=== PATIENT | female | born 1995 | race Caucasian/White ===

== ENCOUNTER 2016-12-05 10:07 | Emergency (ER) | payer MEDICAID, OTHER ==
[2016-12-05 10:28] VITALS: RESP 16; O2SAT 98
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
[2016-12-05 11:50] VITALS: BP 100/65; PULSE 65; TEMP 97.5
== END 2016-12-05 11:48 | disposition home or self-care (01) ==
LOC: EDSEX 10:07
DX: S90.31XA Contusion of right foot, initial encounter (principal); W23.0XXA Caught, crushed, jammed, or pinched between moving objects, initial encounter
CPT/HCPCS: L3260

== ENCOUNTER 2017-06-02 21:20 | Emergency (ER) | payer MEDICAID ==
--- NOTE | 2017-06-02 21:49 | EDPHY ---
H & P Stated Complaint: SI - Personal History LMP (Females 10-55): 22-28 Days Ago Current Tetanus/Diphtheria Vaccine: Yes Current Tetanus Diphtheria and Acellular Pertussis (TDAP): Yes - Medical/Surgical History Hx Asthma: No Hx Chronic Respiratory Disease: No Hx Diabetes: No Hx Cardiac Disease: No Hx Renal Disease: No Hx Cirrhosis: No Hx Alcoholism: No Hx HIV/AIDS: No Hx Splenectomy or Spleen Trauma: No Other PMH: healthy - Social History Smoking Status: Never smoked Time Seen by Provider: 06/02/17 21:28 HPI/ROS: CHIEF COMPLAINT: "I'm afraid to be around myself" HISTORY OF PRESENT ILLNESS: 21-year-old female in the ER via private vehicle with her friend complaining of feeling like she "just wants to " , has new self-inflicted bilateral wrist laceration which was an attempt at suicide, states that she does not feel safe around herself especially being Monday evening does not feel safe going home by herself. She has ongoing outpatient therapy. PRIMARY CARE PROVIDER:Hong REVIEW OF SYSTEMS: A ten point review of systems was performed and is negative with the exception of the items mentioned in the HPI PAST MEDICAL & SURGICAL HISTORY: No pertinent medical or surgical history SOCIAL HISTORY:single PHYSICAL EXAM (Prior to examination, patient consented to physical exam, hands were washed and my usual and customary physical exam procedures followed) 1) GENERAL: Well-developed, well-nourished, alert and oriented. Quiet, depressed, flat affect 2) HEAD: Normocephalic, atraumatic 3) HEENT: Sclera anicteric. 4) NECK: Full range of motion, no meningeal signs. 5) LUNGS: Clear auscultation bilaterally, no wheezes, no rhonchi, no retractions. 6) HEART: Regular rate and rhythm, no murmur, no heave, no gallop. 7) ABDOMEN: No guarding, no rebound, no focal tenderness, 8) MUSCULOSKELETAL: No peripheral edema or discoloration. 9) BACK: no obvious trauma, no visual or palpable abnormality. 10) SKIN: Bilateral transverse wrist abrasion laceration not requiring closure. Neurovascularly intact distally. 11) Psychiatric: Patient is oriented X 3, there is no agitation. DIFFERENTIAL DIAGNOSIS: in no particular include but limited to suicidal ideation, homicidal ideation, depression (Gypsy Nelson Tracie) Constitutional: Initial Vital Signs Temperature (C) 36.6 C 06/02/17 21:24 Heart Rate 93 06/02/17 21:24 Respiratory Rate 16 06/02/17 21:24 Blood Pressure 115/90 H 06/02/17 21:24 O2 Sat (%) 98 06/02/17 21:24 O2 Delivery Mode Room Air Allergies/Adverse Reactions: No Known Allergies Allergy (Unverified 12/05/16 10:29) Home Medications: Medication Instructions Recorded 5-Htp 06/02/17 Indonesian Herbs 06/02/17 Medical Decision Making ED Course/Re-evaluation: 9:49 p.m.: In consultation with Dr. Miles in the emergency department this patient has new bilateral wrist lacerations which were self-inflicted as a suicide attempt, states that she does not feel safe being around herself and wants to , I think the patient meets criteria for an M1. (Gypsy Nelson Tracie) [id number]: No acute events overnight. Patient is sleeping. On M1 hold. Suicidal ideation. Patient needs mental health evaluation still. Patient signed over at 7:00 a.m. shift change to Dr. Gonzalez. (Greg Lucio) 12:50 p.m.. Patient has remained stable in the emergency department. She has been evaluated by mental health and they feel that she is appropriate for outpatient management. She has lots of support and will be staying with friends. She has been given mental health resources by the evaluate her. Patient also states that the amphetamine positive was not methamphetamine but Adderall that she discussed with her therapist. (Jeff Gonzalez) - Data Points Laboratory Results: Laboratory Results 06/02/17 22:10 06/02/17 22:10 Departure - Departure Disposition: Home, Routine, Self-Care Clinical Impression: Severe major depression Condition: Good Instructions: Depression (ED), Suicide Prevention for Adults (ED) Additional Instructions: Return for further thoughts of harming yourself or others. Avoid alcohol. Keep follow-up appointments with your therapist and utilize resources provided by mental health sound effects person. Referrals: Juanita Pitts MD [Primary Care Provider] - As per Instructions
[2017-06-02 23:14] LABS: % IMMATURE GRANULYOCYTES 0.3 % (0.0-1.1); ABSOLUTE IMMATURE GRANULOCYTES 0.02 10^3/uL (0.00-0.10); ADD DIFF? NO; ADD MORPH? NO; ADD SCAN? NO; ATYPICAL LYMPHOCYTE FLAG 0 (0-99); FRAGMENT RBC FLAG 0 (0-99); HEMOGLOBIN 15.4 g/dL (12.6-16.3); LEFT SHIFT FLG 0 (0-99); LIPEMIA HEMOLYSIS FLAG 90 (0-99); MEAN CELL HEMOGLOBIN 31.8 pg (27.9-34.1); MEAN CELL HEMOGLOBIN CONCENTR. 34.2 g/dL (32.4-36.7); MEAN CELL VOLUME 92.8 fL (81.5-99.8); MEAN PLATELET VOLUME 10.8 fL (8.7-11.7); PLATELET CLUMPS FLAG 10 (0-99); PLATELET COUNT 303 10^3/uL (150-400); RED BLOOD CELL COUNT 4.85 10^6/uL (4.18-5.33); RED CELL DISTRIBUTION WIDTH 12.7 % (11.5-15.2)
[2017-06-02 23:20] LABS: ANION GAP 17 mEq/L (8-16); CALCIUM 10.7 mg/dL (8.5-10.4); CARBON DIOXIDE 23 mEq/l (22-31); CHLORIDE 100 mEq/L (97-110); CREATININE 0.7 mg/dL (0.6-1.0); ETHANOL SERUM 39 mg/dL (0-10); GLOMERULAR FILTRATION RATE > 60; GLUCOSE 80 mg/dL (70-100); POTASSIUM 3.6 mEq/L (3.5-5.2); SODIUM 140 mEq/L (134-144)
[2017-06-03 07:43] VITALS: RESP 16
[2017-06-03 13:09] VITALS: BP 131/69; PULSE 77; TEMP 98.2; O2SAT 94
== END 2017-06-03 13:09 | disposition home or self-care (01) ==
DX: S61.511A Laceration without foreign body of right wrist, initial encounter (principal); S61.512A Laceration without foreign body of left wrist, initial encounter; F32.2 Major depressive disorder, single episode, severe without psychotic features; X83.8XXA Intentional self-harm by other specified means, initial encounter
CPT/HCPCS: 80305; G0480

== ENCOUNTER 2018-01-04 21:43 | Emergency (ER) | payer MEDICAID ==
[2018-01-04] MEDS ORDERED: ONDANSETRON DISINTEGRATING 4 MG TAB PO ONE (22:00)
--- NOTE | 2018-01-04 22:03 | EDPHY ---
H & P Stated Complaint: ETOH Time Seen by Provider: 01/04/18 21:54 HPI/ROS: Chief Complaint: Alcohol intoxication, vomiting HPI: 22-year-old female who was brought in by friends intoxicated. Patient passed out after vomiting. Is unable to ambulate on their own. Friends who have been with her all night states she had been drinking multiple shots of alcohol. Denies any other drug use. Remainder of history is unobtainable secondary to the patient's intoxication. ROS: 10 point Review of Systems is negative except as noted in the HPI. PMH: Depression Medications: Wellbutrin Allergies: Denies Social History: Positive for alcohol Family History: non-contributory Physical Exam: Gen: Somnolent, answering some questions, maintaining airway, smells of alcohol and emesis HEENT: Atraumatic Nose: no epistaxis or deformity Eyes: PERRLA, EOMI Mouth: Moist mucosa Neck: Supple, no step-offs or deformity Chest: Atraumatic, lungs clear to auscultation Heart: S1, S2 normal, no murmur Abd: Soft, non-tender, no guarding Back: Atraumatic Ext: no edema, atraumatic Skin: no rash Neuro: Sensation grossly intact, Strength 5/5 in bilateral upper and lower extremities - Personal History LMP (Females 10-55): Now Current Tetanus/Diphtheria Vaccine: Unsure Current Tetanus Diphtheria and Acellular Pertussis (TDAP): Unsure - Medical/Surgical History Hx Asthma: No Hx Chronic Respiratory Disease: No Hx Diabetes: No Hx Cardiac Disease: No Hx Renal Disease: No Hx Cirrhosis: No Hx Alcoholism: No Hx HIV/AIDS: No Hx Splenectomy or Spleen Trauma: No Other PMH: Depression - Social History Smoking Status: Never smoked Constitutional: Initial Vital Signs Temperature (C) 36.7 C 01/04/18 21:48 Heart Rate 69 01/04/18 21:48 Respiratory Rate 16 01/04/18 21:48 Blood Pressure 119/92 H 01/04/18 21:48 O2 Sat (%) 96 01/04/18 21:48 O2 Delivery Mode Room Air Allergies/Adverse Reactions: No Known Allergies Allergy (Unverified 12/05/16 10:29) Home Medications: Medication Instructions Recorded buPROPion 01/04/18
[2018-01-05 00:42] VITALS: BP 101/75
== END 2018-01-05 00:43 | disposition home or self-care (01) ==
DX: F10.129 Alcohol abuse with intoxication, unspecified (principal)